=== PATIENT | female | born 1975 | race Caucasian/White ===

== ENCOUNTER 2018-03-02 16:03 | Emergency (ER) | payer OTHER ==
[2018-03-02] MEDS ORDERED: Ketorolac 10 MG Tab PO ONE (16:29)
--- NOTE | 2018-03-02 16:59 | EDM.PDOC ---
ED HPI GENERAL MEDICAL PROBLEM - General Chief Complaint: General Stated Complaint: left rib pain Time Seen by Provider: 03/02/18 16:10 Source of Information: Reports: Patient History Limitations: Reports: No Limitations - History of Present Illness INITIAL COMMENTS - FREE TEXT/NARRATIVE: Patient comes into the emergency department today after sustaining a 5 day history of a cough and this morning she had a severe coughing fit that resulted in severe lower left chest discomfort abruptly after coughing. The pain is in the left lower chest. It is palpable. When moving her left arm over her head the pain intensifies in the left lower chest region. It hurts to take a deep breath or make any sudden movements. Patient denies any shortness of breath , chest pain, nausea, vomiting, or diarrhea. Onset: Today, Sudden Location: Reports: Chest Quality: Reports: Sharp, Throbbing Severity: Moderate - Related Data Allergies Allergy/AdvReac Type Severity Reaction Status Date / Time aspirin Allergy Nausea Verified 12/20/15 14:49 codeine Allergy Nausea Verified 12/20/15 14:49 celery Allergy Swelling Uncoded 12/20/15 14:49 pecans Allergy Itching Uncoded 12/20/15 14:49 pistachios Allergy Itching Uncoded 12/20/15 14:49 raw asparagus Allergy Anaphylactic Uncoded 12/20/15 14:49 Shock walnuts Allergy Itching Uncoded 12/20/15 14:49 Home Meds: Home Meds Albuterol Sulfate [Ventolin Hfa] 18 gm IH Q4H PRN 12/20/15 [History] Multivitamin with Minerals [Multiple Vitamin] 1 tab DAILY 12/20/15 [History] Naproxen 500 mg BID 12/20/15 [History] Cyclobenzaprine [Flexeril] 10 mg PO TID 3 Days #10 tab 03/02/18 [Rx] Ketorolac Tromethamine [IJD: Ketorolac Tromethamine] 10 mg PO TID #10 tab [Rx] Past Medical History Respiratory History: Reports: Asthma Musculoskeletal History: Reports: Arthritis - Past Surgical History Female Surgical History: Reports: Hysterectomy, Other (See Below), Tubal Ligation Musculoskeletal Surgical History: Reports: Other (See Below) Social & Family History - Tobacco Use Smoking Status *Q: Current Status Unknown - Alcohol Use Days Per Week of Alcohol Use: 3 Number of Drinks Per Day: 2 Total Drinks Per Week: 6 - Recreational Drug Use Recreational Drug Use: No ED ROS GENERAL - Review of Systems Review Of Systems: See Below Constitutional: Reports: No Symptoms HEENT: Reports: No Symptoms Respiratory: Reports: No Symptoms Cardiovascular: Reports: No Symptoms Endocrine: Reports: No Symptoms GI/Abdominal: Reports: No Symptoms : Reports: No Symptoms Musculoskeletal: Reports: No Symptoms Skin: Reports: No Symptoms ED EXAM, GENERAL - Physical Exam Exam: See Below Exam Limited By: No Limitations General Appearance: Alert, WD/WN, No Apparent Distress Head: Atraumatic, Normocephalic Neck: Normal Inspection, Supple Respiratory/Chest: No Respiratory Distress, Lungs Clear, Normal Breath Sounds, No Accessory Muscle Use, Chest Non-Tender Cardiovascular: Normal Peripheral Pulses, Regular Rate, Rhythm, Other (pain with palpation right lower ribs. No redness, swelling, or warmth noted. ) Back Exam: Normal Inspection, Full Range of Motion Extremities: Normal Inspection, Normal Range of Motion, Normal Capillary Refill Neurological: Alert, Oriented, Normal Cognition, Normal Gait Psychiatric: Normal Affect, Normal Mood Skin Exam: Warm, Dry, Intact Course - Orders/Labs/Meds Orders: Active Orders 24 hr Category Date Time Status EKG 12 Lead [EKG Documentation Completion] [RC] URGENT Care 03/02/18 16:28 Active Ribs 2V w Chest Lt [CR] Stat Exams 03/02/18 16:28 Taken Orphenadrine [Norflex] Med 03/02/18 16:30 Active 60 mg IM Q12H Medication Orders Orphenadrine Citrate (Norflex) 60 mg IM Q12H KASIA Last Admin: 03/02/18 16:35 Dose: 60 mg Meds: Medications Generic Name Dose Route Start Last Admin Trade Name Freq PRN Reason Stop Dose Admin Orphenadrine Citrate 60 mg 03/02/18 16:30 03/02/18 16:35 Norflex IM 60 mg Q12H KASIA Administration Discontinued Medications Generic Name Dose Route Start Last Admin Trade Name Freq PRN Reason Stop Dose Admin Cyclobenzaprine HCl 1 packet 03/02/18 17:48 03/02/18 17:53 Take Home: Cyclobenzaprine 10 Mg, 4 Tab Pack PO 03/02/18 17:49 1 packet ONETIME ONE Administration Ketorolac Tromethamine 10 mg 03/02/18 16:29 03/02/18 16:34 Toradol PO 03/02/18 16:30 10 mg ONETIME ONE Administration Ketorolac Tromethamine 1 packet 03/02/18 17:48 03/02/18 17:54 Take Home: Ketorolac 10 Mg, 4 Tab Pack PO 03/02/18 17:49 1 packet ONETIME ONE Administration Departure - Departure Time of Disposition: 17:45 Disposition: Home, Self-Care 01 Condition: Good Clinical Impression: Rib pain on left side, Muscle spasm - Discharge Information Prescriptions: Cyclobenzaprine [Flexeril] 10 mg PO TID 3 Days #10 tab Ketorolac Tromethamine [IJD: Ketorolac Tromethamine] 10 mg PO TID #10 tab Instructions: Cyclobenzaprine tablets, Chest Wall Pain, [id number] Forms: ED Department Discharge Additional Instructions: 1. Take medications as prescribed 2. activity and diet as tolerated 3. Can use ice and heat over the affected area to help relieve pain 4. Follow up with PCP if not better within the week - Problem List Review Problem List Initiated/Reviewed/Updated: Yes - My Orders Last 24 Hours: My Active Orders 03/02/18 16:28 EKG 12 Lead [EKG Documentation Completion] [RC] URGENT Ribs 2V w Chest Lt [CR] Stat 03/02/18 16:30 Orphenadrine [Norflex] 60 mg IM Q12H - Assessment/Plan Last 24 Hours: My Active Orders 03/02/18 16:28 EKG 12 Lead [EKG Documentation Completion] [RC] URGENT Ribs 2V w Chest Lt [CR] Stat 03/02/18 16:30 Orphenadrine [Norflex] 60 mg IM Q12H Assessment:: 1. Rib pain right chest Plan: 1. X-ray completed in the ER. Results reviewed with the patient family 2. Norflex and Toradol given to the patient in the emergency department 3. Patient sent home with Flexeril and Toradol for pain management 4. Advised to follow up with primary care provider if not better within the next couple days
[2018-03-02] MEDS ORDERED: Take Home: Ketorolac 10 MG Tab, 4 Tab Pack PO ONE (17:48)
[2018-03-02] MEDS ORDERED: Take Home: Cyclobenzaprine 10 MG Tab, 4 Tab Pack PO ONE (17:48)
[2018-03-02 19:39] VITALS: BP 138/94
== END 2018-03-02 18:05 | disposition home or self-care (01) ==
LOC: VM.ED 16:03
DX: R07.81 Pleurodynia (principal); M62.838 Other muscle spasm; Z88.6 Allergy status to analgesic agent; Z88.5 Allergy status to narcotic agent; Z91.018 Allergy to other foods; Z79.899 Other long term (current) drug therapy
CPT/HCPCS: 71101-LT; 93005; 96365; 96375; 99284; A9270-GY; J2360

== ENCOUNTER 2023-10-22 13:30 | Emergency (ER) | payer OTHER ==
[2023-10-22] MEDS: HYDROmorphone 0.5 MG/0.5 ML Syringe IVPUSH ONE (13:45)
[2023-10-22] MEDS: Sodium Chloride 0.9% 10 ML Syringe FLUSH PRN (13:46)
[2023-10-22] MEDS: HYDROmorphone 0.5 MG/0.5 ML Syringe ONE (14:38)
[2023-10-22] MEDS ORDERED: HYDROmorphone 0.5 MG/0.5 ML Syringe IVPUSH ONE (14:42)
[2023-10-22 16:05] VITALS: BP 138/78; PULSE 81
== END 2023-10-22 14:43 | disposition home or self-care (01) ==
LOC: VM.ED 13:30
DX: S52.502A Unspecified fracture of the lower end of left radius, initial encounter for closed fracture (principal); S52.602A Unspecified fracture of lower end of left ulna, initial encounter for closed fracture; Z90.710 Acquired absence of both cervix and uterus; Z79.899 Other long term (current) drug therapy; Z88.6 Allergy status to analgesic agent; Z88.5 Allergy status to narcotic agent; Z91.018 Allergy to other foods; W01.0XXA Fall on same level from slipping, tripping and stumbling without subsequent striking against object, initial encounter
CPT/HCPCS: 29125; 73090-LT; 73110-LT; 96374; 99283-25; J1170; J3490

== ENCOUNTER 2025-07-02 11:41 | Day surgery (SDC) | payer OTHER ==
[2025-07-02] MEDS: Lactated Ringers 1,000 ML IV SCH (11:56)
[2025-07-02] MEDS ORDERED: Propofol 200 MG/20 ML SDV ONE (12:41)
[2025-07-02] MEDS ORDERED: fentaNYL 100 MCG/2 ML SDV ONE (12:41)
[2025-07-02 14:21] VITALS: PULSE 60
[2025-07-02 14:30] VITALS: BP 98/72
== END 2025-07-02 14:53 | disposition home or self-care (01) ==
LOC: VM.SDS 11:41
PROVIDERS: ATTEND Family Medicine
DX: Z12.11 Encounter for screening for malignant neoplasm of colon (principal); J45.909 Unspecified asthma, uncomplicated; Z80.0 Family history of malignant neoplasm of digestive organs; Z79.899 Other long term (current) drug therapy
CPT/HCPCS: 00811; J2704; J3010; J7120